=== PATIENT | female | born 1990 | race Two or more races ===

== ENCOUNTER 2018-07-17 12:12 | Emergency (ER) | payer MEDICAID, OTHER ==
[~2018-07-17] VITALS: Ht 162.6 cm; Wt 68.0 kg
[2018-07-17 12:32] VITALS: BP 133/82
== END 2018-07-17 13:51 | disposition home or self-care (01) ==
LOC: ER 12:12
DX: J20.9 Acute bronchitis, unspecified (principal); J35.8 Other chronic diseases of tonsils and adenoids